=== PATIENT | male | born 1985 | race Hispanic/Latino ===

== ENCOUNTER 2016-05-28 01:45 | Emergency (ER) | payer OTHER ==
[~2016-05-28] VITALS: Ht 177.8 cm; Wt 118.2 kg
[2016-05-28 01:47] VITALS: BP 139/93; PULSE 72; RESP 18; O2SAT 100
--- NOTE | 2016-05-28 01:53 | ED.REPORT ---
HPI-Rash / Abscess Date of Service May 28, 2016 ED Provider: MD Quita This is a 30 year old male presenting to the emergency department complaining of erythematous area to upper L back that appeared 3 days ago. Reports pain and purulent drainage. Denies fever, chills, nausea, vomiting, or any other rashes at this time. Nursing Notes Stated Complaint: INFECTED PIMPLE ON BACK Chief Complaint: Skin Rash/Abscess Nursing Notes Reviewed: Yes Allergies: Coded Allergies: acetaminophen (Verified Allergy, Unknown, 06/16/15) General Time Seen by MD: 01:52 Chief Complaint Rash Hx Obtained From: Patient Arrived By: Walk-in Onset Occurred: 3 days ago Symptom Duration: Since onset Severity: Current: Mild Pertinent Negative: Pt denies other symptoms Recent Healthcare: No recent doctor visit, No recent hospitalization Similar Sx Previous: No Past Medical History Past Medical History Pt reports no previous medical history Past Surgical History Pt reports no previous surgical history Smoking History Light Tobacco Smoker Social History Alcohol Use: Denies alcohol use Ambulatory Status Independent Review of Systems Constitutional: Denies: Chills, Fever Respiratory: Denies: Shortness of breath Cardiovascular: Denies: Chest pain GI: Denies: Abdominal pain, Nausea, Vomiting Musculoskeletal: Denies: Back pain Skin: Reports Rash Complete sys rev & neg: except as marked. Male: Denies Dysuria Physical Exam Initial Vital Signs Vital Signs (First) Date Time Temp Pulse Resp B/P Pulse Ox O2 Delivery O2 Flow Rate FiO2 05/28/16 01:47 37.2 72 18 139/93 100 Room Air Initial VS: Reviewed, Vital signs abnormal Head / Eyes: Atraumatic, Normocephalic, PERRL ENT: Mucous membranes moist, Conjunctiva normal, No scleral icterus Respiratory: Breath sounds normal, Clear to auscultation, No respiratory distress Cardiovascular: Regular rate & rhythm, Heart sounds normal, Intact distal pulses Extremities: Vascular intact, Neuro intact, No swelling, No tenderness Neurologic: Alert, Oriented, Nonfocal Psychiatric: Mood/affect normal, Behavior normal, Normal thought content General/Constitutional: Awake, Alert Skin: Warm Rash / Lesion Notes: 3 x 4 cm erythematous area on back with central 1 cm indurated area with central ulceration, non-fluctuant and draining at this time. Neck: No meningismus, Full range of motion Soft Tissue Neck: Positive: Cervical adenopathy L... Re-Eval/Medical Decision Med Decision/Clinical Course 30-year-old male with a draining skin abscess. There is some surrounding cellulitis. He was given a prescription for Bactroban and trimethoprim sulfamethoxazole DS. Warm compresses. Follow-up as needed. Counseled Regarding: Diagnosis, Need for follow-up, When/why to return to ED Discharge & Departure Impression: Primary Impression: Abscess Disposition: Home Discharge Condition All VS Reviewed: Yes Condition: Stable Patient Instructions: Abscess (GEN) Additional Instructions: There is a superficial skin abscess on your back. This does not need to be I&D because it started draining. Applied topical mupirocin (Bactroban) twice a day and keep it covered with a Band-Aid. Warm compresses twice a day. Trimethoprim sulfamethoxazole DS, one by mouth twice a day #20 dispensed. Benzoyl peroxide 10% wash, lather your entire body when you shower daily for the next week. Referrals: NOPCP (PCP) Scribe Attestation Portions of this note were transcribed by Gary Garcia. I, Dr. Devlin personally performed the history, physical exam and medical decision-making; I reviewed and confirmed the accuracy of the information in the transcribed note. Signed by: brandon Roberson. 05/27/2016, 06:00. Narciso Devlin MD May 28, 2016 01:53 GARY GARCIA May 28, 2016 01:58
[2016-05-28] MEDS ORDERED: Mupirocin 2% 22 Gm Ointment TOPICAL ONE (02:00)
[2016-05-28] MEDS ORDERED: _Trimethoprim-Sulfa 160/800 mg Tablet PO SCH (08:30)
[2016-05-28] MEDS ORDERED: Mupirocin 2% 22 Gm Ointment TOPICAL SCH (08:30)
== END 2016-05-28 02:30 | disposition home or self-care (01) ==
LOC: SED 01:45
DX: L02.212 Cutaneous abscess of back [any part, except buttock and flank] (principal); F17.200 Nicotine dependence, unspecified, uncomplicated; Z88.8 Allergy status to other drugs, medicaments and biological substances

== ENCOUNTER 2016-10-06 21:06 | Emergency (ER) | payer OTHER ==
[~2016-10-06] VITALS: Ht 177.8 cm; Wt 118.2 kg
[2016-10-06 21:28] VITALS: BP 131/84; PULSE 68; RESP 16; O2SAT 97
--- NOTE | 2016-10-06 23:32 | ED.REPORT ---
HPI-General Illness Date of Service Oct 06, 2016 ED Provider: Dr. Ray 30 y/o male with no pertinent hx presents to the ED complaining of non- radiating left lower jaw pain, onset this morning. He describes the pain as "squishing" and rates it 7/10 in severity. He denies any other symptoms, including vision change, nausea, fever and chills. Feels like previous dental pain. Nursing Notes Stated Complaint: SWELLING OF FACE Chief Complaint: Dental Nursing Notes Reviewed: Yes Allergies: Coded Allergies: acetaminophen (Verified Allergy, Unknown, 10/06/16) General Time Seen by MD: 23:31 Chief Complaint Other (lower left jaw pain) Hx Obtained From: Patient Arrived By: Walk-in Sudden in Onset?: Yes Onset Occurred: 9 - 12 hours ago Symptom Duration: Since onset Location: : Mouth Radiation: : Does not radiate Severity: Current: Pain level 7 out of 10 Severity: Maximum: Severe Recent Healthcare: No recent doctor visit Similar Sx Previous: Yes Past Medical History Past Medical History Pt reports no previous medical history Past Surgical History Pt reports no previous surgical history Smoking History Current Every Day Smoker Social History Alcohol Use: Denies alcohol use Drug Use: Denies drug use Ambulatory Status Independent Review of Systems Reports: lower left jaw pain Full Review of Systems Constitutional: Denies: Chills, Fever GI: Denies: Nausea Neurologic: Denies: Vision change Complete sys rev & neg: except as marked. Physical Exam Nursing note and vitals reviewed. Constitutional: Well-developed, well-nourished. Not diaphoretic. Head: Normocephalic and atraumatic. Mouth/Throat: Oropharynx is clear and moist. No oropharyngeal exudate. One of the tooth in the left lower jaw is chipped. No signs of periapical abscess. Eyes: EOM are normal. Pupils are equal, round, and reactive to light. Neck: Supple, no tracheal deviation.No lymphadenopathy. Cardiovascular: Normal rate, regular rhythm. Equal and intact distal pulses throughout. Pulmonary/Chest: Effort normal and breath sounds normal. No respiratory distress. Abdominal: Soft. No distension. There is no tenderness, rebound, or guarding. Bowel sounds present. Musculoskeletal: Range of motion grossly intact, moving all extremities. No edema or tenderness appreciated. Neurological: AOx3. Grossly nonfocal exam. Strength and sensation intact and equal to bilateral upper and lower extremities. Skin: Warm and dry, no rashes or pallor appreciated. Psychiatric: Appropriate mood and affect. Behavior appears normal. Vital Signs Vital Signs Date Time Temp Pulse Resp B/P Pulse Ox O2 Delivery O2 Flow Rate FiO2 10/06/16 21:28 37.0 68 16 131/84 97 Room Air Re-Eval/Medical Decision Med Decision/Clinical Course Well-appearing 30-year-old male, otherwise healthy, presenting to the ED for evaluation of dental pain. No red flags; no fever, no chills, no vision changes , no headache. No significant tongue swelling, no lymphadenopathy, no neck pain. No signs of a periapical abscess. He does have a chipped tooth and has poor dentition throughout. Plan Augmentin, ibuprofen for pain, and dental follow-up on Saturday. Patient agreeable to the plan as stated, no further questions. Time of Eval: 23:38 Re-Evaluation/Progress Note: Discussed diagnosis and plan to discharge. Pt understands and agrees with the plan. F/U instructions and RTER warning given. All questions addressed. Counseled Regarding: Diagnosis, Need for follow-up, When/why to return to ED Discharge & Departure Primary Impression: Pain, dental Disposition: Home Discharge Condition All VS Reviewed: Yes Condition: Stable Patient Instructions: Dental Caries (ED), Toothache (ED) Additional Instructions: Thank you for entrusting us with your care today. Take the antibiotics as prescribed. Please complete the full course of antibiotics. Take Ibuprofen and Tylenol as discussed. You need to see a dentist on Saturday. Return if you develop fever, worsening pain, vision changes, headache, or anything else of concern to you. Referrals: [facility] Scribe Attestation Portions of this note were transcribed by Faye Mckay. I,, personally performed the history, physical exam and medical decision-making;I reviewed and confirmed the accuracy of the information in the transcribed note. Signed by Jomar Pierre. 10/06/16 23:56 copies to: [facility] Agnel Ray MD Oct 06, 2016 23:32 aFye Mckay Oct 06, 2016 23:39
[2016-10-06] MEDS ORDERED: _Amoxicillin-Clavulanate 875-125 mg Tablet PO SCH (23:45)
[2016-10-07 00:02] VITALS: BP 125/87; PULSE 61; RESP 16; O2SAT 95
== END 2016-10-07 00:03 | disposition home or self-care (01) ==
LOC: SED 21:06
DX: K08.89 Other specified disorders of teeth and supporting structures (principal); F17.200 Nicotine dependence, unspecified, uncomplicated; Z88.6 Allergy status to analgesic agent

== ENCOUNTER 2016-12-17 19:47 | Emergency (ER) | payer OTHER ==
[~2016-12-17] VITALS: Ht 177.8 cm; Wt 113.6 kg
[2016-12-17 20:17] VITALS: BP 145/86; PULSE 69; RESP 16; O2SAT 100
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
[2016-12-17 22:31] VITALS: BP 140/80; PULSE 66; RESP 16; O2SAT 100
[2016-12-18] MEDS ORDERED: _metroNIDAZOLE 500 mg Tablet PO SCH (08:30)
== END 2016-12-17 22:31 | disposition home or self-care (01) ==
LOC: SED 19:47
DX: Z20.2 Contact with and (suspected) exposure to infections with a predominantly sexual mode of transmission (principal); F17.200 Nicotine dependence, unspecified, uncomplicated; Z88.5 Allergy status to narcotic agent